=== PATIENT | female | born 1950 | race African-American/Black ===

== ENCOUNTER 2018-02-22 00:08 | Emergency (ER) | payer OTHER ==
[~2018-02-22] VITALS: Ht 162.6 cm; Wt 86.2 kg
[~2018-02-22 00:08] MED LIST: GLUCOPHAGE500 MG PO; GLUCOTROL XL2.5 MG PO; MOTRIN IB200 MG PO; NORCO 5-325 TA1 EACH PO; TRAMADOL 50 MG50 MG PO; TRIAMTERENE-HC1 EAC1 PO; ZOCOR40 MG PO
[2018-02-22] MEDS ORDERED: LIPITOR 20 MG T20 M1 PO (00:36)
[2018-02-22] MEDS ORDERED: OMEPRAZOLE40 MG PO (00:36)
[2018-02-22] MEDS ORDERED: NORVASC5 MG PO (00:37)
[2018-02-22] MEDS ORDERED: CLARITIN10 MG PO (00:37)
[2018-02-22] MEDS ORDERED: FLEXERIL PO (00:37)
[2018-02-22] MEDS ORDERED: BYSTOLIC 5 MG5 M1 PO (00:38)
[2018-02-22] MEDS ORDERED: PREDNISONE 5 MG5 M1 PO (00:39)
[2018-02-22] MEDS ORDERED: GUAIFEN-CODEINE10 ML PO (03:11)
[2018-02-22] MEDS ORDERED: VENTOLIN HFA 1818 GM INH (03:11)
== END 2018-02-22 03:33 | disposition home or self-care (01) ==
LOC: ER 00:08
DX: J06.9 Acute upper respiratory infection, unspecified (principal); E11.9 Type 2 diabetes mellitus without complications; I10 Essential (primary) hypertension; G89.29 Other chronic pain; Z88.8 Allergy status to other drugs, medicaments and biological substances; Z91.041 Radiographic dye allergy status; Z91.018 Allergy to other foods

== ENCOUNTER 2018-12-18 19:37 | Emergency (ER) | payer OTHER ==
[~2018-12-18] VITALS: Ht 162.6 cm; Wt 99.8 kg
[~2018-12-18 19:37] MED LIST changes: +BYSTOLIC 5 MG5 M1 PO; +CLARITIN10 MG PO; +FLEXERIL PO; +GUAIFEN-CODEINE10 ML PO; +LIPITOR 20 MG T20 M1 PO; +NORVASC5 MG PO; +OMEPRAZOLE40 MG PO; +PREDNISONE 5 MG5 M1 PO; +VENTOLIN HFA 1818 GM INH
[2018-12-18] MEDS ORDERED: PREDNISONE 10 M10 MG PO (22:17)
[2018-12-18 22:38] VITALS: BP 189/80
--- NOTE | 2018-12-19 08:39 | EKG ---
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
== END 2018-12-18 22:41 | disposition home or self-care (01) ==
LOC: ER 19:37
DX: M65.222 Calcific tendinitis, left upper arm (principal); I10 Essential (primary) hypertension; E11.9 Type 2 diabetes mellitus without complications; M54.9 Dorsalgia, unspecified; G89.29 Other chronic pain; Z91.041 Radiographic dye allergy status; Z91.018 Allergy to other foods; Z88.8 Allergy status to other drugs, medicaments and biological substances; Z90.89 Acquired absence of other organs

== ENCOUNTER 2019-09-18 14:14 | Emergency (ER) | payer OTHER ==
[~2019-09-18] VITALS: Ht 162.6 cm; Wt 99.8 kg
[~2019-09-18 14:14] MED LIST changes: +PREDNISONE 10 M10 MG PO
[2019-09-18 17:09] VITALS: BP 145/58
== END 2019-09-18 17:10 | disposition home or self-care (01) ==
LOC: ER 14:14
DX: M25.512 Pain in left shoulder (principal); R07.89 Other chest pain; I10 Essential (primary) hypertension; E11.9 Type 2 diabetes mellitus without complications; G89.29 Other chronic pain; Z98.51 Tubal ligation status; Z90.49 Acquired absence of other specified parts of digestive tract; Z91.010 Allergy to peanuts; Z88.8 Allergy status to other drugs, medicaments and biological substances; V89.2XXA Person injured in unspecified motor-vehicle accident, traffic, initial encounter; Y93.89 Activity, other specified; Y92.89 Other specified places as the place of occurrence of the external cause; Y99.8 Other external cause status

== ENCOUNTER 2020-03-30 19:23 | Emergency (ER) | payer OTHER ==
[~2020-03-30] VITALS: Ht 162.6 cm; Wt 99.8 kg
[2020-03-30 20:10] LABS: ABSOLUTE NEUTROPHILS 4.2 thou/uL (1.4-8.2); BASOPHILS 0.5 % (0.0-2.0); HEMATOCRIT 35.3 % (37.0-47.0); HEMOGLOBIN 11.7 gm/dL (12.0-15.0); LYMPHOCYTES 23.6 % (24.0-44.0); MCH 29.3 pg (26.0-34.0); MCHC 33.3 g/dL (28.0-37.0); PLATELET COUNT 163 thou/uL (150-400); POLYS 71.9 % (36.0-66.0); RBC 4.01 mil/uL (4.20-5.00); RDW 12.9 % (10.5-14.5); WBC 5.9 thou/uL (4.0-11.0)
[2020-03-30 20:30] LABS: CALCIUM 8.8 mg/dL (8.5-10.1); CREATININE 1.1 mg/dL (0.6-1.0); MAGNESIUM 2.1 mg/dL (1.8-2.4); POTASSIUM 3.3 mmol/L (3.5-5.1)
[2020-03-30 21:54] VITALS: BP 165/54
== END 2020-03-30 23:09 | disposition home or self-care (01) ==
LOC: ER 19:23
PROVIDERS: Emergency Medicine
DX: U07.1 COVID-19 (principal); R53.83 Other fatigue; I10 Essential (primary) hypertension; E11.9 Type 2 diabetes mellitus without complications; G89.29 Other chronic pain; M54.9 Dorsalgia, unspecified; Z79.899 Other long term (current) drug therapy; Z88.8 Allergy status to other drugs, medicaments and biological substances; Z91.018 Allergy to other foods; Z90.89 Acquired absence of other organs

== ENCOUNTER 2020-04-21 20:54 | Emergency (ER) | payer OTHER ==
[~2020-04-21] VITALS: Ht 162.6 cm; Wt 94.3 kg
[2020-04-21 22:23] LABS: ABSOLUTE NEUTROPHILS 1.8 thou/uL (1.4-8.2); BASOPHILS 0.8 % (0.0-2.0); EOSINOPHILS 5.6 % (0.0-3.0); HEMATOCRIT 31.6 % (37.0-47.0); HEMOGLOBIN 10.1 gm/dL (12.0-15.0); LYMPHOCYTES 47.4 % (24.0-44.0); MCV 90.6 fL (80.0-100.0); MONOCYTES 9.3 % (1.0-8.0); PLATELET COUNT 307 thou/uL (150-400); POLYS 36.9 % (36.0-66.0); RBC 3.49 mil/uL (4.20-5.00); RDW 14.8 % (10.5-14.5); WBC 4.8 thou/uL (4.0-11.0)
[2020-04-21 22:32] LABS: CREATININE 0.8 mg/dL (0.6-1.0); POTASSIUM 3.3 mmol/L (3.5-5.1)
[2020-04-21 22:46] LABS: ALBUMIN 2.9 g/dL (3.4-5.0); TOTAL BILIRUBIN 0.3 mg/dL (0.2-1.0); TOTAL PROTEIN 7.3 g/dL (6.4-8.2)
[2020-04-21] MEDS ORDERED: PROAIR HFA8.5 GM INH (22:51)
[2020-04-21] MEDS ORDERED: TRAMADOL 50 MG50 MG PO (22:52)
[2020-04-21] MEDS ORDERED: METFORMIN HCL500 MG PO (22:53)
[2020-04-21] MEDS ORDERED: ROSUVASTATIN CA20 MG PO (22:53)
[2020-04-22] MEDS ORDERED: CEFPODOXIME PR200 M1 PO (02:04)
[2020-04-22] MEDS ORDERED: AZITHROMYCIN250 MG PO (02:04)
[2020-04-22 02:10] VITALS: BP 141/55
--- NOTE | 2020-04-22 07:29 | EKG ---
[facility] [email or web address] [address] ELECTROCARDIOGRAM REPORT Name: KAYLI AMBROSIO Room #: 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 : 1950 Requested By: Nolberto Ontiveros Order Number: [id number] MD: Demetri Kaur Measurements Intervals [place] Rate: 71 P: 44 IA: 143 QRS: -7 QRSD: 97 T: -1 QT: 408 QTc: 444 Interpretive Statements Sinus rhythm Nonspecific T wave abnormality Compared to ECG 12/18/2018 21:25:04 ST segment abnormality is less pronounced Electronically Signed On 04-22-2020 7:29:43 DOCUMENT CLERK by Demetri Kaur [email or web address] <ELECTRONICALLY SIGNED> By: Demetri Kaur MD, MERGED WITH [facility] 04/22/20 0729 2239 2239 Demetri Kaur MD, FACC /EPI
== END 2020-04-22 02:10 | disposition home or self-care (01) ==
LOC: ER 20:54
PROVIDERS: Physician Assistant
DX: U07.1 COVID-19 (principal); J18.9 Pneumonia, unspecified organism; I10 Essential (primary) hypertension; G89.29 Other chronic pain; M54.9 Dorsalgia, unspecified; Z79.899 Other long term (current) drug therapy; Z88.8 Allergy status to other drugs, medicaments and biological substances; Z91.018 Allergy to other foods